=== PATIENT | female | born 1940 | race Caucasian/White ===

== ENCOUNTER → 2020-11-07 13:41 | Outpatient (BNVA) | payer MEDICARE, OTHER, SELFPAY | PROVIDERS: PCP Internal Medicine; Visit Provider Hospitalist | DX: J41.8 Mixed simple and mucopurulent chronic bronchitis (principal); R91.8 Other nonspecific abnormal finding of lung field | CPT/HCPCS: 99212 ==

== ENCOUNTER 2021-05-12 11:54 | Outpatient (REF) | payer MEDICARE, OTHER, SELFPAY ==
--- NOTE | ~2021-05-12 | XR_ITS ---
EXAMINATION: XR CHEST CLINICAL INFORMATION: Other nonspecific abnormal finding of lung field COMPARISON: None TECHNIQUE: 2 views of the chest were obtained. FINDINGS: The cardiac silhouette is normal in size. The lungs are well aerated. There is no lobar consolidation. No pleural effusion or pneumothorax. Surgical clips project over the left breast. Mild to moderate diffuse degenerative changes of the spine. XR/XR chest 2V IMPRESSION: No acute pulmonary pathology.
== END 2021-05-12 11:55 | disposition home or self-care (01) ==
LOC: HO.XRAY 11:54
PROVIDERS: PCP Internal Medicine; Visit Provider Hospitalist
DX: J41.8 Mixed simple and mucopurulent chronic bronchitis (principal); R91.8 Other nonspecific abnormal finding of lung field
CPT/HCPCS: 71046; 87070; 87205; 99212

== ENCOUNTER → 2021-10-12 12:59 | Outpatient (BNVA) | payer MEDICARE, OTHER, SELFPAY | PROVIDERS: PCP Internal Medicine; Visit Provider Hospitalist | DX: J41.8 Mixed simple and mucopurulent chronic bronchitis (principal); R91.8 Other nonspecific abnormal finding of lung field | CPT/HCPCS: 99212 ==

== ENCOUNTER → 2022-01-16 12:47 | Outpatient (BNVA) | payer MEDICARE, OTHER, SELFPAY | PROVIDERS: PCP Internal Medicine; Visit Provider Hospitalist | DX: J41.8 Mixed simple and mucopurulent chronic bronchitis (principal); R91.8 Other nonspecific abnormal finding of lung field; Z79.899 Other long term (current) drug therapy | CPT/HCPCS: 99212 ==

== ENCOUNTER → 2022-11-16 13:09 | Outpatient (BNVA) | payer MEDICARE, OTHER, SELFPAY | PROVIDERS: PCP Internal Medicine; Visit Provider Hospitalist | DX: J41.8 Mixed simple and mucopurulent chronic bronchitis (principal); R91.8 Other nonspecific abnormal finding of lung field | CPT/HCPCS: 99212 ==

== ENCOUNTER 2024-09-11 15:29 | Outpatient (AMB) | payer MEDICARE, OTHER, SELFPAY ==
--- NOTE | 2024-09-11 15:31 | MHC.OFFVIS ---
Vital Signs 09/11/24 15:32 Height 5 ft 2 in Weight 168 lb 10.458 oz BMI 30.8 BP 142/74 H Blood Pressure Location Rt brachial Position Sitting Pulse 97 Pulse Source Pulse Oximeter Pulse Oximetry (%) 98 Oxygen Delivery Method Room Air Intake Visit Reasons: COPD Allergies No Known Allergies Allergy (Verified 09/11/24 15:35) HPI Comments Details: The patient is an 84-year-old woman with a known history of COPD and pulmonary nodules. She also has a history of breast cancer which was treated and also history of acute myelogenous leukemia treated. Overall she has been doing well. She started azithromycin Saturday and Saturday he feels the care cough and her breathing has improved dramatically. She recently underwent a CT scan of the chest in February 2019 which we personally reviewed demonstrating stable pulmonary nodules and some minimal atelectasis. Otherwise otherwise no other significant findings. She recently did get a cold and has been feeling better although she did have worsening respiratory symptoms for appeared of time. 03/28/2020 the patient is here for pulmonary follow-up visit. Overall she is doing well from a respiratory status. She does continue with an ongoing productive cough. She continues with respiratory therapy in addition to the azithromycin for suppression therapy. She recently did undergo an EKG with her primary care doctor. Therefore, will continue the azithromycin for now. The patient did have a CT scan of the chest which is reassuring demonstrating stable pulmonary nodules. At this point no additional imaging studies were to unless the patient develops any symptoms or any concerning symptoms. 11/07/2020 the patient is here for pulmonary follow-up visit. Overall she is doing well. She continues with productive cough which is [id number] severity. Although has significantly improved with the use of azithromycin. She feels this has been very effective in helping her symptoms. Explained to her that to small dose but it does still can interact with certain medications summary to follow her QT levels. She did have an EKG done by her primary care doctor as per the patient. She also states that she will have a visit next month and she will get an EKG at this time. I did request a copy to have for now records. She continues with the Symbicort. Also has been improving her symptoms. Will plan to continue her on the azithromycin 3 times a week in follow-up in 6 months. At that point will request a chest x-ray. 05/12/2021 the patient is here for a pulmonary follow-up visit. Still complains of a cough productive in nature. Chest congestion. Has been adherent to her medical therapy. Unfortunately she continues to be very symptomatic. The azithromycin macrolide suppression therapy does help partially. We did review her chest x-ray no acute disease. Although, have not been finalized. Will plan to optimize respiratory therapy by adding a long-acting beta agonist also adding singular. Will try to also send another sputum culture. 10/12/2021 the patient is here for pulmonary follow-up visit. The patient overall is doing a little better. She continues of a cough and still congested in nature. The azithromycin really did not make a big difference. She continues on her respiratory therapy. In addition to that she was diagnosed of bili with cellulitis and was started on doxycycline. We did send a sputum culture but it was contaminated and could not be process. That happens a lot with expectorated sputum samples of his contaminated with tumor saliva. In the meantime she continues on her respiratory therapy for some time. Will go ahead and change her to Trelegy to see if this provides with better effect in addition to that. The patient will benefit from nebulizer. The nebulizer will provide chest physical therapy. Will go over with a nebulizer and also an Acapella valve in order for her to clear her phlegm twice a day. The patient will stop the azithromycin at this time. 01/16/2022 the patient is here for a pulmonary follow-up visit. The patient is doing a lot better. She states the nebulized therapy has been very effective for her. She has been able to clear the mucus and congestion a lot better. She did get the Acapella valve but she did not know how to use it. We did go through the instructions on how to use it in the office. She was start using it after the nebulized therapy ideally. She can also use by itself she also responded well to the Trelegy inhaler. She has been using that once a day. Unfortunately she had not stopped the Symbicort. Explained to her that this is too much beta agonist activity. She has been complaining of significant muscle cramping. When she stop Symbicort hopeful that her cramping will improve and I am hoping that her respiratory symptoms continue to be stable. We did look at her last chest x-ray from 05/27/2021 which is reassuring. Based on the fact that she is doing well from a respiratory status will hold off on any additional imaging studies. If the patient develops any worsening respiratory symptoms at that point additional diagnostic interventions may be warranted. 11/16/2022 the patient is here for pulmonary follow-up visit. The patient with significantly better. She has been able to wean off some of the medications. The albuterol is causing her to develop significant muscle spasm specially at nighttime. She does try to eat potassium rich food. No significant improvement however. It is suggested she can use the albuterol as needed specially since she is less congested. Trelegy inhaler has been affecting beneficial she does like once a day. Otherwise the patient is doing much better. No recent x-rays to review. The patient will follow-up with her primary care doctor make sure that she got her pneumonia vaccine, Prevnar 20. 09/11/2024 the patient is here for a pulmonary follow-up visit. Overall she is doing okay. She was lost to follow-up because she never got an appointment. She did call and we finally got her in. She has been offered her medication for some time and she has been noticing some worsening respiratory symptoms since then. She responds very good the Trelegy. Will make sure she has all the medications at the pharmacy. If she is no better she will call for further evaluation. Her respiratory exam is reassuring although diminished. Will plan to repeat her chest x-ray. Otherwise will follow-up in a year. If she has any issues prior to that she will call for an earlier assessment. [facility] Medical History (Updated 11/07/20 @ 22:23 by Kehinde Newton MD) Pulmonary nodules COPD (chronic obstructive pulmonary disease) Social History Patient Tobacco Use Status: Former Tobacco user Tobacco use type: Cigarette Years Smoked: 20 years Review of Systems Const Denies night sweats ENT Denies change in voice, Denies lip swelling, Denies mouth pain, Reports nasal congestion, Reports nasal discharge and Denies tongue swelling Card Denies chest pain and Reports dyspnea on exertion Resp Reports cough and Reports dyspnea on exertion GI Denies abdominal pain Musc Denies no additional complaints Neuro Denies Neuro-related abnormal movements Psych Denies no additional complaints Alfonso/Lymph Denies easy bleeding and Denies lymphadenopathy Aller/Immun Denies lip swelling and Denies tongue swelling Physical Exam Vital Signs: Last Vital Signs Pulse 97 09/11/24 15:32 BP 142/74 H 09/11/24 15:32 Pulse Ox 98 09/11/24 15:32 Oxygen Delivery Method Room Air 09/11/24 15:32 BMI result Body Mass Index 30.8 Const General: alert Neck Neck: Yes normal visual inspection, Yes full ROM and Yes no lymphadenopathy Chest Chest palpation & inspection: normal inspection of the chest Resp Auscultation: diminished lung sounds Cardio Rate: regular rate Rhythm: regular rhythm Heart sounds: S1 normal heart sound present and S2 normal heart sound present GI Palpation (GI): Soft to palpation and nontender Auscultation: normal bowel sounds Skin General skin exam: rashes and/or lesions noted Assessment & Plan Assessment & Plan (1) COPD (chronic obstructive pulmonary disease): Code(s): J44.9 - Chronic obstructive pulmonary disease, unspecified Category: Medical Qualifiers: COPD type: chronic bronchitis Chronic bronchitis type: mixed simple and mucopurulent Qualified Code(s): J41.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 (2) Pulmonary nodules: Code(s): R91.8 - Other nonspecific abnormal finding of lung field Category: Medical Plan continue Trelegy 200 continue nebulizer Xopenex twice a day as needed continue Acapella valve CXR F/U in 8-12 months Orders: Orders XR chest 2V 09/11/24 J41.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 Medications: New albuterol sulfate 90 mcg/actuation 2 inhalations inhalation Q6H PRN 18 grams 12RF shortness of breath or wheezing 30 days J44.9 - Chronic obstructive pulmonary disease, unspecified Changed From levalbuterol HCl (Xopenex) 1.25 mg (3 mL) inhalation BID 30 days 180 mL 11RF J44.9 - Chronic obstructive pulmonary disease, unspecified To levalbuterol HCl 1.25 mg (3 mL) inhalation BID 180 mL 11RF 30 days J44.9 - Chronic obstructive pulmonary disease, unspecified Refilled [id number]-ylezqkmag-[id number] 200-62.5-25 mcg (Trelegy Ellipta) 1 inh inhalation DAILY 60 ea 12RF 30 days montelukast 10 mg PO DAILY 90 tabs 3RF J45.909 - Unspecified asthma, uncomplicated Coding Level of Care Code Est Pt Level 4 (23633) Diagnoses Mixed simple and mucopurulent chronic bronchitis J41.8 COPD type: chronic bronchitis Chronic bronchitis type: mixed simple and mucopurulent Pulmonary nodules R91.8 Time Spent (min) 16
[2024-09-11 15:32] VITALS: BP 142/74; PULSE 97; O2SAT 98; BMI 30.8
--- OUTSIDE RECORDS SUMMARY | 2024-09-11 17:01 | XMS_ITS | Clinical Summary ---
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 Name Role Phone Tanner Maciel MD Primary Care Provider Allergies No known active allergies Medications No known medications Active Problems No known active problems Encounters Date Type Department Care Team Description 07/28/2024 11:19 AM EST - 07/28/2024 2:39 PM EST Emergency [facility] Emergency [address] [place] [id number] Closed head injury, initial encounter (Primary Dx); Fall, initial encounter Discharge Disposition: Home or Self Care from Last 3 Months Surgical History Surgery Date Site/Laterality Comments CATARACT EXTRACTION PROCEDURE: HISTORICAL CATARACT REMOVAL TONSILLECTOMY PROCEDURE: HISTORICAL TONSILLECTOMY HEMORRHOID SURGERY PROCEDURE: DESTRUCTION OF HEMORRHOIDS HYSTERECTOMY PROCEDURE: HISTORICAL HYSTERECTOMY HERNIA REPAIR PROCEDURE: HISTORICAL HERNIA REPAIR/UMB Medical History Medical History Date Comments Hypothyroid 10/30/2017 DX:Hypothyroid 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 DX:Fi brosis of lung (HCC) Multiple pulmonary nodules 05/03/2017 DX:Mu ltiple pulmonary nodules Pneumonitis 05/03/2017 DX:Pneumonitis Hyperlipidemia 10/30/2017 DX:Hyperlipidemi a Hypertension 10/30/2017 DX:Hypertension Social History Tobacco Use Types Packs/Day Years Used Date Smoking Tobacco: Former Smokeless Tobacco: Never Alcohol Use Standard Drinks/Week Comments Yes 0 (1 standard drink = 0.6 oz pur e alcohol) Comments Unknown Sex and Gender Information Value Date Recorded Sex Assigned at Female 07/28/2024 1:09 PM EST Legal Sex Female 4:10 AM EST Gender Identity Female 07/28/2024 1:09 PM EST Sexual Orientation Straight 07/28/2024 1: 09 PM EST Obstetrics History Last Filed Vital Signs Vital Sign Reading Time Taken Comments Blood Pressure 144/74 07/28/2024 2:36 PM EST Pulse 91 07/28/2024 2:36 PM EST Temperature 36.6 ??C (97.9 ??F) 07/28/2024 2:36 PM ES T Respiratory Rate 16 07/28/2024 11:26 AM EST Oxygen Saturation 96% 07/28/2024 2:36 PM EST Inhaled Oxygen Concentration - - Weight 74.8 kg (165 lb) 07/28/2024 11:26 AM EST Height 157.5 cm (5' 2 ) 07/28/2024 11:26 AM EST Body Mass Index 30.18 07/28/2024 11:26 AM EST Plan of Treatment Health Maintenance Due Date Last Done Comments RSV Immunization Patients 60+ Years Old (1 - 1-dose 75+ series) 2013 Pneumococcal Vaccine: 50+ Years (2 of 2 - PCV) 03/16/2020 03/16/2019 Zoster Vaccines (3 of 3) 08/20/2020 06/25/2020, 05/09 Cholesterol Screening (Lipid Panel) 06/10/2022 Depression Screening 06/10/2022 Falls Risk Assessment 06/10/2022 Medicare Annual Wellness Visit 06/10/2022 Social Influencers of Health Screening 06/10/2022 Hypertension/CHF/CAD Annual BMP Blood Test 07/28/2025 07/28/2024 DTaP,Tdap,and Td Vaccines (2 - Td or Tdap) 10/02/2026 10/02/2016 Osteoporosis Screening (Bone Density Screening) 05/20/2030 05/20/2020 COVID-19 Vaccine Completed 04/01/2024, 06/2023, 05/20/2022, Additional history exists Influenza Vaccine Completed 04/01/2024, , 03/27/2022, Additional history exists HIB Vaccines Aged Out No longer eligi ble based on patient's age to complete this topic HPV Vaccines Aged Out No longer eligi ble based on patient's age to complete this topic Hepatitis A Vaccines Aged Out No long er eligible based on patient's age to complete this topic Hepatitis B Vaccines Aged Out No long er eligible based on patient's age to complete this topic IPV Vaccines Aged Out No longer eligi ble based on patient's age to complete this topic MMR Vaccines Aged Out No longer eligi ble based on patient's age to complete this topic Meningococcal ACWY Vaccine Aged Out N o longer eligible based on patient's age to complete this topic Meningococcal B Vacine Aged Out No lo nger eligible based on patient's age to complete this topic RSV Immunization Patients Under 20 months Aged Out No longer eligible based on patient's age to complete this topic Varicella Vaccines Aged Out No longer eligible based on patient's age to complete this topic Procedures Procedure Name Priority Date/Time Associated Diagnosis Comments URINALYSIS WITH REFLEX MICROSCOPIC STAT 07/28/2024 1:54 PM EST URINALYSIS WITH REFLEX MICROSCOPIC STAT 07/28/2024 1:54 PM EST CBC WITH AUTO DIFFERENTIAL STAT 07/28/2024 1:30 PM EST CBC AND DIFFERENTIAL STAT 07/28/2024 1:30 PM EST BASIC METABOLIC PANEL STAT 07/28/2024 1:30 PM EST XR KNEE 1-2 VIEWS BILAT STAT 07/28/2024 1:[address] MAXILLOFACIAL WO CONTRAST STAT 07/28/2024 12:[address] CERVICAL SPINE WO CONTRAST STAT 07/28/2024 12:[address] HEAD WO CONTRAST STAT 07/28/2024 1 2:54 PM EST ECG 12-LEAD STAT 07/28/2024 12:31 PM EST ECG ANNOTATED 07/28/2024 REMEDIOS DEXA AXIAL SKELETON Routine 05/20/2020 10:06 AM EST Other specified disorders of bone density and structure, other site from Last 3 Months or Most Recently Relevant to Health Maintenance Results * Urinalysis with reflex microscopic (07/28/2024 1:54 PM EST) Specific [place] Urine 1.018 1.003 - 1.030 LAB URINALYSIS - AUTOMATED METHOD 07/28/2024 2:36 PM EST [facility] pH, Urine 6.5 5.0 - 8.0 pH LAB URINALYSIS - AUTOMATED METHOD 07/28/2024 2:36 PM [facility] Leukocytes, Urine Negative Negative LAB URINALYSIS - AUTOMATED METHOD 07/28/2024 2:36 PM [facility] Nitrite, Urine Negative Negative LAB URINALYSIS - AUTOMATED METHOD 07/28/2024 2:36 PM [facility] Protein, Urine Negative <=Trace mg/dL LAB URINALYSIS - AUTOMATED METHOD 07/28/2024 2:36 PM [facility] Glucose, Urine Negative Negative mg/dL LAB URINALYSIS - AUTOMATED METHOD 07/28/2024 2:36 PM [facility] Ketones, Urine Negative Negative mg/dL LAB URINALYSIS - AUTOMATED METHOD 07/28/2024 2:36 PM [facility] Urobilinogen, Urine 1.0 0.2 - 1.0 mg/dL LAB URINALYSIS - AUTOMATED METHOD 07/28/2024 2:36 PM [facility] Bilirubin, Urine Negative Negative LAB URINALYSIS - AUTOMATED METHOD 07/28/2024 2:36 PM [facility] Blood, Urine Negative Negative LAB URINALYSIS - AUTOMATED METHOD 07/28/2024 2:36 PM [facility] Urine Urine specimen obtained by clean catch procedure / Unknown Non-blood Collection / Unknown 07/28/2024 1:54 PM EST 07/28/2024 2:20 PM EST Herve ESCALERA LAB URINE ORDERABLES Final R esult [facility] [address] [place] [address], * (ABNORMAL) CBC auto differential (07/28/2024 1:30 PM EST) WBC 6.3 4.8 - 10.8 K/mcL LAB HEMETOLOGY METHOD 07/28/2024 1:48 PM EST [facility] RBC 3.30(L) 3.80 - 4.80 M/mcL LAB HEMETOLOGY METHOD 07/28/2024 1:48 PM EST [facility] Hemoglobin 11.1(L) 11.5 - 16.0 g/dL LAB HEMETOLOGY METHOD 07/28/2024 1:48 PM [facility] Hematocrit 34.2(L) 35.0 - 47.0 % LAB HEMETOLOGY METHOD 07/28/2024 1:48 PM EST [facility] MCV 103.0(H) 79.0 - 98.0 FL LAB HEMETOLOGY METHOD 07/28/2024 1:48 PM EST [facility] MCH 33.4(H) 27.0 - 32.0 pcg LAB HEMETOLOGY METHOD 07/28/2024 1:48 PM EST [facility] MCHC 32.5 32.0 - 37.0 g/dL LAB HEMETOLOGY METHOD 07/28/2024 1:48 PM EST [facility] RDW 13.8 11.0 - 15.0 % LAB HEMETOLOGY METHOD 07/28/2024 1:48 PM [facility] Platelets 183 130 - 400 K/mcL LAB HEMETOLOGY METHOD 07/28/2024 1:48 PM [facility] MPV 10.3 7.0 - 11.0 FL LAB HEMETOLOGY METHOD 07/28/2024 1:48 PM [facility] NRBC 0.0 <1.0 % LAB HEMETOLOGY METHOD 07/28/2024 1:48 PM [facility] NRBC Absolute 0.00 <0.10 K/mcL LAB HEMETOLOGY METHOD 07/28/2024 1:48 PM [facility] Neutrophils Relative 65.5 % LAB HEMETOLOGY METHOD 07/28/2024 1:48 PM [facility] Lymphocytes Relative 21.5 % LAB HEMETOLOGY METHOD 07/28/2024 1:48 PM [facility] Monocytes Relative 10.8 % LAB HEMETOLOGY METHOD 07/28/2024 1:48 PM [facility] Eosinophils Relative 1.4 % LAB HEMETOLOGY METHOD 07/28/2024 1:48 PM [facility] Basophils Relative 0.3 % LAB HEMETOLOGY METHOD 07/28/2024 1:48 PM [facility] Immature Granulocytes Relative 0.5 % LAB HEMETOLOGY METHOD 07/28/2024 1:48 PM [facility] Neutrophils Absolute 4.12 1.50 - 7.00 K/mcL LAB HEMETOLOGY METHOD 07/28/2024 1:48 PM [facility] Lymphocytes Absolute 1.35 1.00 - 5.00 K/mcL LAB HEMETOLOGY METHOD 07/28/2024 1:48 PM [facility] Monocytes Absolute 0.68 0.20 - 1.00 K/mcL LAB HEMETOLOGY METHOD 07/28/2024 1:48 PM [facility] Eosinophils Absolute 0.09 0.00 - 0.50 K/mcL LAB HEMETOLOGY METHOD 07/28/2024 1:48 PM [facility] Basophils Absolute 0.02 0.00 - 0.20 K/mcL LAB HEMETOLOGY METHOD 07/28/2024 1:48 PM [facility] Immature Granulocytes Absolute 0.03 0.00 - 0.03 K/mcL LAB HEMETOLOGY METHOD 07/28/2024 1:48 PM [facility] Blood Venous blood specimen / Unknown Venipuncture / Unknown 07/28/2024 1:30 PM EST 07/28/2024 1:40 PM EST us Herve ESCALERA LAB BLOOD ORDERABLES Final R esult [facility] [address] [place] [address], [place] [phone] * Basic Metabolic Panel (BMP) (07/28/2024 1:30 PM EST) Sodium 138 133 - 145 mmol/L LAB CHEMISTRY METHOD 07/28/2024 2:10 PM [facility] Potassium 3.9 3.5 - 5.5 mmol/L LAB CHEMISTRY METHOD 07/28/2024 2:10 PM [facility] Chloride 106 96 - 110 mmol/L LAB CHEMISTRY METHOD 07/28/2024 2:10 PM [facility] CO2 26 21 - 32 mmol/L LAB CHEMISTRY METHOD 07/28/2024 2:10 PM [facility] Anion Gap 6 3 - 11 LAB CHEMISTRY METHOD 07/28/2024 2:10 PM [facility] Glucose 100 70 - 100 mg/dL LAB CHEMISTRY METHOD 07/28/2024 2:10 PM [facility] BUN 17 5 - 25 mg/dL LAB CHEMISTRY METHOD 07/28/2024 2:10 PM [facility] Creatinine 0.84 0.50 - 1.10 mg/dL LAB CHEMISTRY METHOD 07/28/2024 2:10 PM [facility] eGFR 68 >=60 mL/min/1. 73m2 LAB CHEMISTRY METHOD 07/28/2024 2:10 PM EST [facility] Comment:Calculation based on the??Chronic Kidney Disease Epidemiology Collaboration (CKD-EPI) equation refit??without adjustment for race. BUN/Creatinine Ratio 20.2 LAB CHEMISTRY METHOD 07/28/2024 2:10 PM EST [facility] Calcium 9.2 8.5 - 10.5 mg/dL LAB CHEMISTRY METHOD 07/28/2024 2:10 PM EST [facility] Blood Venous blood specimen / Unknown Venipuncture / Unknown 07/28/2024 1:30 PM EST 07/28/2024 1:39 PM EST us Herve ESCALERA LAB BLOOD ORDERABLES Final R esult [facility] [address] [place] [address], [place] [phone] * XR Knee 1-2 Views bilat (07/28/2024 1:02 PM EST) Anatomical Region Laterality Modality Lower Extremities, Knee Bilateral Radiogra phic Imaging 07/28/2024 1:23 PM EST Impressions 07/28/2024 1:28 PM EST Degenerative changes of both knees. ??No acute findings. -------- FINAL REPORT -------- Dictated By: Denis Cabezas Dictated Date: 07/28/2024 13:23 ET Assigned Physician: Denis Cabezas Reviewed and Electronically Signed By: Denis Cabezas Signed Date: 07/28/2024 13:28 ET Workstation ID: [id number] Transcribed By: Self Edit Transcribed Date: 07/28/2024 13:23 ET Narrative 07/28/2024 1:28 PM EST Frontal and lateral radiographs of both knees, 07/28/2024. HISTORY: RECENT TRAUMA, KNEE. COMPARISON: None. FINDINGS: Bilateral meniscal calcifications suggestive of chondrocalcinosis. ??The bones appear diffusely demineralized. ??No fracture or malalignment. ??Mild bilateral tricompartmental degenerative irregularity, more prominent on the left than the right, without significant joint space loss. ??No focal bony lesion. ??Moderate atherosclerotic calcifications. ??No significant joint effusion. Procedure Note Denis Cabezas MD - 07/28/2024 Frontal and lateral radiographs of both knees, 07/28/2024. HISTORY: RECENT TRAUMA, KNEE. COMPARISON: None. FINDINGS: Bilateral meniscal calcifications suggestive of chondrocalcinosis. Thebones appear diffusely demineralized. No fracture or malalignment. Mildbilateral tricompartmental degenerative irregularity, more prominent onthe left than the right, without significant joint space loss. No focalbony lesion. Moderate atherosclerotic calcifications. No significantjoint effusion. IMPRESSION: Degenerative changes of both knees. No acute findings. -------- FINAL REPORT -------- Dictated By: Denis Cabezas Dictated Date: 07/28/2024 13:23 ET Assigned Physician: Denis Cabezas Reviewed and Electronically Signed By: Denis Cabezas Signed Date: 07/28/2024 13:28 ET Workstation ID: [id number] Transcribed By: Self Edit Transcribed Date: 07/28/2024 13:23 ET Herve ESCALERA IMG XR PROCEDURES Final Resu lt * CT Cervical Spine wo Contrast (07/28/2024 12:54 PM EST) Anatomical Region Laterality Modality Spine, C-spine Computed Tomogra phy 07/28/2024 1:07 PM EST Impressions 07/28/2024 1:17 PM EST No acute fracture or traumatic subluxation of the cervical spine. -------- FINAL REPORT -------- Dictated By: Denis Cabezas Dictated Date: 07/28/2024 13:07 ET Assigned Physician: Denis Cabezas Reviewed and Electronically Signed By: Denis Cabezas Signed Date: 07/28/2024 13:17 ET Workstation ID: [id number] Transcribed By: Self Edit Transcribed Date: 07/28/2024 13:15 ET Narrative 07/28/2024 1:17 PM EST PROCEDURE: Noncontrast CT of the cervical spine. HISTORY: Neck trauma (Age >= 65y). TECHNIQUE: Noncontrast CT of the cervical spine with coronal and sagittal reformats. COMPARISON: CT angiogram of the neck, 11/12/2023. Dose length product: ?? Total for all concurrently acquired exams was 2607 mGy- cm. FINDINGS: Multifocal atherosclerotic calcifications. ??Small thyroid gland. ??Mild scarring at the lung apices. ??No prevertebral soft tissue swelling or CT evidence of an acute epidural hematoma. Fluid in the right mastoid air cells. ??Visualized portions of the skull base are otherwise unremarkable. Bones are diffusely demineralized. ??No fracture. ??Slight anterolisthesis at C7-T1: Multilevel degenerative changes, most prominently affecting the facet joints and the C5-6 endplates. ??Many of the facet joints are partially fused. ??There is no significant spinal stenosis. Procedure Note Denis Cabezas MD - 07/28/2024 PROCEDURE: Noncontrast CT of the cervical spine. HISTORY: Neck trauma (Age >= 65y). TECHNIQUE: Noncontrast CT of the cervical spine with coronal and sagittalreformats. COMPARISON: CT angiogram of the neck, 11/12/2023. Dose length product: Total for all concurrently acquired exams was 2607mGy-cm. FINDINGS: Multifocal atherosclerotic calcifications. Small thyroid gland. Mildscarring at the lung apices. No prevertebral soft tissue swelling or CTevidence of an acute epidural hematoma. Fluid in the right mastoid air cells. Visualized portions of the skullbase are otherwise unremarkable. Bones are diffusely demineralized. No fracture. Slight anterolisthesisat C7-T1: Multilevel degenerative changes, most prominently affecting thefacet joints and the C5-6 endplates. Many of the facet joints arepartially fused. There is no significant spinal stenosis. IMPRESSION: No acute fracture or traumatic subluxation of the cervical spine. -------- FINAL REPORT -------- Dictated By: Denis Cabezas Dictated Date: 07/28/2024 13:07 ET Assigned Physician: Denis Cabezas Reviewed and Electronically Signed By: Denis Cabezas Signed Date: 07/28/2024 13:17 ET Workstation ID: [id number] Transcribed By: Self Edit Transcribed Date: 07/28/2024 13:15 ET Herve ESCALERA IMG CT PROCEDURES Final Resu lt * CT Maxillofacial wo Contrast (07/28/2024 12:54 PM EST) Anatomical Region Laterality Modality Head and Neck Computed Tomogra phy 07/28/2024 1:17 PM EST Impressions 07/28/2024 1:21 PM EST Small right supraorbital soft tissue hematoma. ??No facial fracture. -------- FINAL REPORT -------- Dictated By: Denis Cabezas Dictated Date: 07/28/2024 13:17 ET Assigned Physician: Denis Cabezas Reviewed and Electronically Signed By: Denis Cabezas Signed Date: 07/28/2024 13:21 ET Workstation ID: [id number] Transcribed By: Self Edit Transcribed Date: 07/28/2024 13:17 ET Narrative 07/28/2024 1:21 PM EST PROCEDURE: CT of the face without intravenous contrast. HISTORY: Facial trauma. COMPARISON: None. TECHNIQUE: Noncontrast CT of the face with coronal and sagittal reformats. Dose length product: ?? Total for all concurrently acquired exams was 2607 mg centimeters. FINDINGS: Small right supraorbital soft tissue hematoma. ??Partially visible degenerative changes of the cervical spine. ??Prominent degenerative changes of the left temporomandibular joint. ??No facial fracture. Small thyroid gland. ??Scattered atherosclerotic calcifications. ??Visualized soft tissues are otherwise unremarkable. Bilateral lens implants. ??Orbits otherwise appear normal. Please see the accompanying dedicated head CT report for intracranial findings. Procedure Note Denis Cabezas MD - 07/28/2024 PROCEDURE: CT of the face without intravenous contrast. HISTORY: Facial trauma. COMPARISON: None. TECHNIQUE: Noncontrast CT of the face with coronal and sagittalreformats. Dose length product: Total for all concurrently acquired exams was 2607mg centimeters. FINDINGS: Small right supraorbital soft tissue hematoma. Partially visibledegenerative changes of the cervical spine. Prominent degenerativechanges of the left temporomandibular joint. No facial fracture. Small thyroid gland. Scattered atherosclerotic calcifications.Visualized soft tissues are otherwise unremarkable. Bilateral lens implants. Orbits otherwise appear normal. Please see the accompanying dedicated head CT report for intracranialfindings. IMPRESSION: Small right supraorbital soft tissue hematoma. No facial fracture. -------- FINAL REPORT -------- Dictated By: Denis Cabezas Dictated Date: 07/28/2024 13:17 ET Assigned Physician: Denis Cabezas Reviewed and Electronically Signed By: Denis Cabezas Signed Date: 07/28/2024 13:21 ET Workstation ID: [id number] Transcribed By: Self Edit Transcribed Date: 07/28/2024 13:17 ET Herve ESCALERA IM CT PROCEDURES Final Resu lt * CT Head wo Contrast (07/28/2024 12:54 PM EST) Anatomical Region Laterality Modality Head and Neck Computed Tomogra phy 07/28/2024 1:07 PM EST Impressions 07/28/2024 1:11 PM EST 1. ??No acute traumatic findings. 2. ??New focus of hypoattenuation in the anterior left jimenez radiata, likely a small area of encephalomalacia secondary to an interval small vessel infarct. -------- FINAL REPORT -------- Dictated By: Denis Cabezas Dictated Date: 07/28/2024 13:07 ET Assigned Physician: Denis Cabezas Reviewed and Electronically Signed By: Denis Cabezas Signed Date: 07/28/2024 13:11 ET Workstation ID: [id number] Transcribed By: Self Edit Transcribed Date: 07/28/2024 13:07 ET Narrative 07/28/2024 1:11 PM EST PROCEDURE: Noncontrast head CT. HISTORY: Facial trauma fall hit head. COMPARISON: Head CT 11/12/2023. TECHNIQUE: Noncontrast head CT with coronal and sagittal reformats. Dose length product: ??Total for all concurrently acquired exams was 2607 mGy- cm. FINDINGS: Brain: No hemorrhage, edema, mass, or extra-axial fluid collection. ??No CT evidence of an acute large vessel infarct. ??Ventricles and sulci are age commensurate. ??There is a 7 mm low-attenuation focus in the anterior left jimenez radiata which is not seen on the previous study. ??Atherosclerotic calcifications of the carotid siphons and scattered atherosclerotic calcifications of the vertebrobasilar system. Orbits: Lens implants. Sinuses/mastoids: Near complete opacification of the right mastoid air cells. Calvarium: Mild hyperostosis frontalis interna. Other: The skull base soft tissues are normal. ??Severe degenerative changes of the left temporomandibular joint. Procedure Note Denis Cabezas MD - 07/28/2024 PROCEDURE: Noncontrast head CT. HISTORY: Facial trauma fall hit head. COMPARISON: Head CT 11/12/2023. TECHNIQUE: Noncontrast head CT with coronal and sagittal reformats. Dose length product: Total for all concurrently acquired exams was 2607mGy-cm. FINDINGS: Brain: No hemorrhage, edema, mass, or extra-axial fluid collection. No CTevidence of an acute large vessel infarct. Ventricles and sulci are agecommensurate. There is a 7 mm low-attenuation focus in the anterior leftcorona radiata which is not seen on the previous study. Atheroscleroticcalcifications of the carotid siphons and scattered atheroscleroticcalcifications of the vertebrobasilar system. Orbits: Lens implants. Sinuses/mastoids: Near complete opacification of the right mastoid aircells. Calvarium: Mild hyperostosis frontalis interna. Other: The skull base soft tissues are normal. Severe degenerativechanges of the left temporomandibular joint. IMPRESSION: 1. No acute traumatic findings. 2. New focus of hypoattenuation in the anterior left jimenez radiata,likely a small area of encephalomalacia secondary to an interval smallvessel infarct. -------- FINAL REPORT -------- Dictated By: Denis Cabezas Dictated Date: 07/28/2024 13:07 ET Assigned Physician: Denis Cabezas Reviewed and Electronically Signed By: Denis Cabezas Signed Date: 07/28/2024 13:11 ET Workstation ID: [id number] Transcribed By: Self Edit Transcribed Date: 07/28/2024 13:07 ET us Herve ESCALERA IMG CT PROCEDURES Final Resu lt * 12-Lead ECG (07/28/2024 12:31 PM EST) Ventricular Rate ECG 92 BPM GEMUSE Atrial Rate 92 BPM GEMUSE P-R Interval 208 ms GEMUSE QRS Duration 110 ms GEMUSE Q-T Interval 384 ms GEMUSE QTc 474 ms GEMUSE P Wave Long Bottom 67 degrees GEMUSE R Long Bottom -21 degrees GEMUSE T Long Bottom 46 degrees GEMUSE ECG Interpretation Sinus rhythm with frequent , and consecutive Premature ventricular complexes Minimal voltage criteria for LVH, may be normal variant Anterior infarct , age undetermined Abnormal ECG When compared with ECG of 12-NOV-2023 11:09, Previous ECG has undetermined rhythm, needs review Confirmed by ANNY CHURCH ([id number]) on 07/28/2024 6:47:10 PM GEMUSE 07/28/2024 12:3 1 PM EST 07/28/2024 6:47 PM EST us Herve ESCALERA ECG ORDERABLES Final Result GEMUSE * ECG-Annotated (07/28/2024) us Provider Onbase MD ECG ORDERABLES Final Result * REMEDIOS DEXA AXIAL SKELETON (05/20/2020 10:06 AM EST) Anatomical Region Laterality Modality Mammography 05/20/2020 8:49 AM EST Narrative 05/20/2020 10:06 AM EST [facility] Diagnostic Imaging Department [address] [place] [id number] Patient: ??JASMYNE,NEVAEH Laura ?/Age/Sex: 1940 - 79 - F Unit#: ??[id number] ? Location/Status: ??SPDIMAM/REG CLI ? Mnemonic/Ordering Site: ??MAMDEXAAX/SPMAM Ordering Physician: ??TANNER MACIEL MD [facility] Dexa Axial Skeleton - 05/20/20935 HISTORY: ??The patient is an 79-year-old postmenopausal female with clinical concern for metabolic bone disease. FINDINGS: ??Dual energy x-ray absorptiometry of the lumbar spine and femurs is performed. The mean bone mineral density at L1-3 is 1.256 gm/cm2 which is 107% of that of young normals and 121% of that of age matched controls. This yields a T-score of 0.7 and a Z-score of 1.8 and there is therefore no evidence of osteoporosis or osteopenia here. The mean bone mineral density of the femurs bilaterally is 1.023 gm/cm2 which is 102% of that of young normals and 126% of that of age matched controls. ??This yields a T-score of 0.1 and a Z-score of 1.7 and there is therefore no evidence of osteoporosis or osteopenia here. However, the T-score of the right femoral neck is -1.4 which is diagnostic of osteopenia. IMPRESSION: 1. Osteopenia. ??There has been a decrease of 2.3% in bone mineral density in the lumbar spine since the prior examination of 02/24/2015. ??There has been an increase of 1.6% in bone mineral density in the right femur and a decrease of 2.6% in bone mineral density in the left femur. 2. FRAX analysis yields a 10-year probability of major osteoporotic fracture of 14.7% and a 10-year probability of hip fracture of 4.3%. Code 05547 Dictating Physician: ??YANY LOPEZ MD Electronically Signed by: ??YANY LOPEZ MD Dic Date/Time: ??05/20/20 0957 Sign date/Time: ??05/20/20 1006 Procedure Note Yany Lopez MD - 06/26/2022 [facility] Diagnostic Imaging Department [address] [place] [address] Patient: NEVAEH MEDLEY D.O.B./Age/Sex: 1940 - 79 - F Unit#: [id number] [facility] Mnemonic/Ordering Site: [facility] Ordering Physician: TANNER MACIEL MD [facility] Dexa Axial Skeleton - 05/20/20935 HISTORY: The patient is an 79-year-old postmenopausal female withclinical concern for metabolic bone disease. FINDINGS: Dual energy x-ray absorptiometry of the lumbar spine and femursis performed. The mean bone mineral density at L1-3 is 1.256 gm/cm2 which is107% of that of young normals and 121% of that of age matched controls. Thisyields a T-score of 0.7 and a Z-score of 1.8 and there is therefore no evidenceof osteoporosis or osteopenia here. The mean bone mineral density of the femurs bilaterally is 1.023 gm/ro4topuz is 102% of that of young normals and 126% of that of age matched controls.This yields a T-score of 0.1 and a Z-score of 1.7 and there is therefore noevidence of osteoporosis or osteopenia here. However, the T-score of the rightfemoral neck is -1.4 which is diagnostic of osteopenia. IMPRESSION: 1. Osteopenia. There has been a decrease of 2.3% in bone mineral densityin the lumbar spine since the prior examination of 02/24/2015. There has beenan increase of 1.6% in bone mineral density in the right femur and a decreaseof 2.6% in bone mineral density in the left femur. 2. FRAX analysis yields a 10-year probability of major osteoporoticfracture of 14.7% and a 10-year probability of hip fracture of 4.3%. 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
== END 2024-09-11 16:00 | disposition home or self-care (01) ==
PROVIDERS: PCP Internal Medicine; Visit Provider Hospitalist
DX: J41.8 Mixed simple and mucopurulent chronic bronchitis (principal); R91.8 Other nonspecific abnormal finding of lung field
CPT/HCPCS: 99214

== ENCOUNTER → 2024-09-11 15:29 | Outpatient (BNVA) | payer MEDICARE, OTHER, SELFPAY | PROVIDERS: PCP Internal Medicine; Visit Provider Hospitalist | DX: J41.8 Mixed simple and mucopurulent chronic bronchitis (principal); R91.8 Other nonspecific abnormal finding of lung field; Z87.891 Personal history of nicotine dependence | CPT/HCPCS: 99212 ==